=== PATIENT | female | born 1955 | race Caucasian/White ===

== ENCOUNTER 2017-06-29 10:56 | Observation (INO) | payer OTHER ==
[2017-06-24 21:27] LABS: BASOPHILS 0.6 %; BASOPHILS ABSOLUTE 0.04 10/3/uL (0.0-0.16); EOSINOPHILS 1.8 %; EOSINOPHILS ABSOLUTE 0.12 10/3/uL (0.0-0.53); HEMATOCRIT 42.9 % (36.0-48.0); HEMOGLOBIN 14.1 g/dL (12.0-16.0); IMMATURE GRANULOCYTES 0.1 %; IMMATURE GRANULOCYTES ABSOLUTE 0.01 10/3/uL (0.0-0.11); LYMPHOCYTES 36.1 %; LYMPHOCYTES ABSOLUTE 2.47 10/3/uL (0.67-4.30); MANUAL DIFF NO %; MEAN CORPUS HGB CONC 32.9 g/dL (32.0-36.0); MEAN CORPUSCULAR HEMOGLOB 30.8 pg (26.0-34.0); MEAN CORPUSCULAR VOLUME 93.7 fL (80-100); MEAN PLATELET VOLUME 10.2 fL (9.2-13.0); MONOCYTES 8.5 %; MONOCYTES ABSOLUTE 0.58 10/3/uL (0.21-1.20); NEUTROPHILS 52.9 %; NEUTROPHILS ABSOLUTE 3.62 10/3/uL (2.02-8.40); PLATELET COUNT 293 10/3/uL (150-400); RBC DISTRIBUTION WIDTH 13.3 % (12.0-16.0); RED CELL COUNT 4.58 10/6/uL (4.0-5.6); WHITE BLOOD CELLS 6.8 10/3/uL (4.5-10.5)
[2017-06-24 21:37] LABS: BUN (BLOOD UREA NITROGEN) 13 MG/DL (6-23); CALCIUM, SERUM 9.2 MG/DL (8.5-10.4); CHLORIDE, SERUM 103 MMOL/L (96-112); CO2 (CARBON DIOXIDE) 28 MMOL/L (24-34); CREATININE 0.83 MG/DL (0.55-1.02); GFR AFRICAN AMERICAN 86 ML/MIN (>=60); GFR NON AFRICAN AMERICAN 75 ML/MIN (>=60); GLUCOSE, SERUM 77 MG/DL (60-99); POTASSIUM, SERUM 3.7 MMOL/L (3.5-5.3); SODIUM, SERUM 140 MMOL/L (135-148)
[~2017-06-29] VITALS: Ht 162.6 cm; Wt 97.5 kg
--- NOTE | ~2017-06-29 | OP ---
Record Of Operation [facility] [address] [place]. 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 ANESTHESIA: General. PROCEDURES: 1. Robot-assisted laparoscopic hysterectomy with bilateral salpingo-oophorectomy. CPT code 35565. 2. Bilateral complete pelvic and periaortic lymph node dissection. CPT code 96128. 3. Cystoscopy. FINDINGS: Grossly normal-appearing uterus, bilateral fallopian tubes, and ovaries. There were no grossly enlarged lymph nodes noted. No evidence of peritoneal deformities. When the uterus was opened at the bedside, there was a gross lesion at the uterine fundus approximately 2 cm in size, grossly appeared to be invading deeply into the myometrium. 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 PATHOLOGY: Uterus, uterine cervix, bilateral fallopian tubes and ovaries, bilateral pelvic lymph nodes, bilateral periaortic lymph nodes, pelvic washings. COMPLICATIONS: None. POSTOPERATIVE PLAN: Extubated to PACU. PROCEDURE IN DETAIL: After informed consent was signed, the patient was taken to the operating room and placed in dorsal supine position where adequate general anesthesia was administered. She was then placed in dorsal lithotomy position in Star stirrups and prepped and draped in usual fashion, and a Garcia catheter was placed. The uterus was sounded, cervix dilated, and the JUDI uterine manipulator was assembled and deployed. ICG was injected into the cervix at 3 and 9 o'clock. Left upper quadrant incision was made with a scalpel and carried down to the fascia which was incised, muscle , posterior sheath entered sharply, trocar placed, and abdomen insufflated with CO2 gas. Additional robot trocars were placed in the supraumbilical region, bilateral upper quadrants, and right lateral flank, all under direct visualization. The patient was then placed in steep Trendelenburg and the robot docked in usual fashion. Bilateral round ligaments were taken with bipolar cautery, transected with monopolar scissors, and the pelvic peritoneum was taken down lateral and parallel to the infundibulopelvic ligaments. The pararectal and paravesical spaces were then developed and using the firefly scope, sentinel lymph nodes were identified and removed as separate specimens. Record Of Operation [facility] [id number] [facility] [place]. [address] NAME: BEENA COREY : 51 STATUS : DIS Beata PAT#: [id number] AGE: 62 ADM/REG DATE : 06/29/17 MR#: [id number] REPORT SERV DATE: 07/01/17 DICTATED BY: GRAHAM FORD DATE: 07/01/17 REPORT STATUS : Draft TRANSCRIBED BY: GARFIELD DATE: 07/01/17 Next, with the ureters reflected medially, clips were placed in the origins of the uterine arteries bilaterally. The infundibulopelvic ligaments were then isolated, taken with bipolar cautery, transected with monopolar scissors, and the broad ligament taken down to the level of the cervix where the posterior colpotomy was made. Next, the vesicouterine peritoneum was then incised and the bladder taken down well beneath the level of the anterior MARIELA ring and anterior colpotomy was made. The uterine vessels were then taken at the cervix with bipolar cautery, transected with monopolar scissors, and the parametria reflected off the cervical stroma. The anterior and posterior colpotomies were then connected using monopolar scissors, and the uterus, uterine cervix, and bilateral fallopian tubes were brought out through the vagina. The uterus was opened at the bedside with frozen section diagnosis as above. Next, the peritoneum overlying the midportion of the right common iliac artery was incised and taken up over the aorta to the level just above the CARLOS. Both ureters were identified and reflected laterally. All lymphatic tissue overlying the left and right sides of the aorta and anterior to the vena cava from the CARLOS down to the midportion of the common iliac arteries bilaterally was removed using monopolar scissors and blunt dissection where appropriate. These lymph nodes were then placed in their respective EndoCatch bags and brought out through the registrar assistant port. Next, a complete pelvic lymphadenectomy was performed. Specifically, all lymphatic tissue from the midportion of the common iliac artery superiorly down the deep circumflex iliac veins inferiorly from the psoas muscle laterally to the superior vesical artery medially, and the obturator nerve posteriorly removed using Bovie cautery and blunt dissection where appropriate. These lymph nodes were then brought out through the vagina. The pelvis was irrigated with copious amounts of irrigation fluid, and excellent hemostasis was noted. All instruments were removed from the abdomen. The robot was undocked and the Garcia catheter removed. The cystoscope was then placed through the urethra and the bladder distended with appropriate media. Bilateral brisk ureteral jets were noted suggesting bilateral ureteral patency. The cystoscope was removed and the bladder drained. The CO2 gas which had been evacuated was then reinsufflated into the abdomen and then using the laparoscope, the pelvis was reexamined and found to be hemostatic. The laparoscope and all trocars were then removed from the abdomen and CO2 gas evacuated. The patient was placed back in dorsal supine position, awakened, extubated, and sent to the PACU in stable condition. The fascia from the left upper quadrant incision had been closed with 0 Vicryl suture with a figure-of- eight stitch and the skin was closed with 4-0 Monocryl and Dermabond. TB/GARFIELD Graham Ford MD / [id number] Record Of Operation [address] [address] NAME: BEENA CROEY : 51 STATUS : DIS Beata PAT#: [id number] AGE: 62 ADM/REG DATE : 06/29/17 MR#: [id number] REPORT SERV DATE: 07/01/17 DICTATED BY: GRAHAM FORD DATE: 07/01/17 REPORT STATUS : Draft TRANSCRIBED BY: GARFIELD DATE: 07/01/17 CC: MD JEEVAN Cruz
[~2017-06-29 10:56] MED LIST: ARMOUR THYRO15 MG PO; ARMOUR THYRO60 MG PO; CO Q-10100 MG PO; MOTRIN IB200 MG PO; NAP500 PO; PRESERVISION A1 EACH PO; PROZAC PO; SURBEX/C1 TAB PO; VITE PO; WELLXL300 PO; ZOCOR10 PO; ZYRTEC ALLGY10 MG PO
[2017-06-30 06:25] LABS: BASOPHILS 0.1 %; BASOPHILS ABSOLUTE 0.01 10/3/uL (0.0-0.16); EOSINOPHILS 0 %; HEMOGLOBIN 11.6 g/dL (12.0-16.0); IMMATURE GRANULOCYTES 0.2 %; IMMATURE GRANULOCYTES ABSOLUTE 0.02 10/3/uL (0.0-0.11); LYMPHOCYTES 7.4 %; LYMPHOCYTES ABSOLUTE 0.97 10/3/uL (0.67-4.30); MEAN CORPUS HGB CONC 33.8 g/dL (32.0-36.0); MEAN CORPUSCULAR HEMOGLOB 30.8 pg (26.0-34.0); MEAN PLATELET VOLUME 9.5 fL (9.2-13.0); MONOCYTES 8.1 %; MONOCYTES ABSOLUTE 1.06 10/3/uL (0.21-1.20); NEUTROPHILS 84.2 %; NEUTROPHILS ABSOLUTE 11.03 10/3/uL (2.02-8.40); PLATELET COUNT 228 10/3/uL (150-400); RBC DISTRIBUTION WIDTH 13.4 % (12.0-16.0); RED CELL COUNT 3.77 10/6/uL (4.0-5.6)
[2017-06-30 06:26] LABS: HEMATOCRIT 34.3 % (36.0-48.0); MANUAL DIFF NO %; WHITE BLOOD CELLS 13.1 10/3/uL (4.5-10.5)
[2017-06-30 06:43] LABS: CALCIUM, SERUM 8.4 MG/DL (8.5-10.4); CHLORIDE, SERUM 110 MMOL/L (96-112); CO2 (CARBON DIOXIDE) 26 MMOL/L (24-34); CREATININE 0.68 MG/DL (0.55-1.02); GFR AFRICAN AMERICAN 107 ML/MIN (>=60); GFR NON AFRICAN AMERICAN 92 ML/MIN (>=60); SODIUM, SERUM 142 MMOL/L (135-148)
[2017-06-30 06:44] LABS: BUN (BLOOD UREA NITROGEN) 8 MG/DL (6-23); GLUCOSE, SERUM 109 MG/DL (60-99); POTASSIUM, SERUM 4.6 MMOL/L (3.5-5.3)
[2017-06-30] MEDS ORDERED: MYLICON 40 MG T40 MG PO (09:44)
[2017-06-30] MEDS ORDERED: PCET PO (09:48)
[2017-06-30] MEDS ORDERED: COMP10B PO (09:49)
== END 2017-06-30 14:43 | disposition home or self-care (01) ==
LOC: ENRESERVTM → ENRESERVDT → ENRESERV → SDC 10:56 → SDC/OF 19:42 → 4EA 19:42
PROVIDERS: Obstetrics & Gynecology Gynecology
PROC: 0UT24ZZ Resection of Bilateral Ovaries, Percutaneous Endoscopic Approach (ICD-10-PCS; 2017-06-29)
PROC: 0UT74ZZ Resection of Bilateral Fallopian Tubes, Percutaneous Endoscopic Approach (ICD-10-PCS; 2017-06-29)
PROC: 07TC0ZZ Resection of Pelvis Lymphatic, Open Approach (ICD-10-PCS; 2017-06-29)
PROC: 0UT94ZZ Resection of Uterus, Percutaneous Endoscopic Approach (ICD-10-PCS; principal; 2017-06-29 13:30)
PROC: 0UTC4ZZ Resection of Cervix, Percutaneous Endoscopic Approach (ICD-10-PCS; 2017-06-29 13:30)
DX: C54.1 Malignant neoplasm of endometrium (principal); E66.9 Obesity, unspecified; E03.9 Hypothyroidism, unspecified; F41.9 Anxiety disorder, unspecified; E78.00 Pure hypercholesterolemia, unspecified; Z90.49 Acquired absence of other specified parts of digestive tract; Z98.890 Other specified postprocedural states
CPT/HCPCS: 36415; 71010; 71020-PO; 80048; 85025; 86850; 86900; 86901; 88112; 88307; 88309; 88331; 88332; 88341; 88342; 88360; 93005; 96374; 96375; 96376; A9270-GY; G0378; J0694; J2250; J2405; J2550; J2710; J2795; J3010